=== PATIENT | female | born 1950 | race Caucasian/White ===

== ENCOUNTER 2017-08-14 04:05 | Emergency (ER) | payer SELFPAY ==
[2017-08-14] MEDS: IPRATROPIUM (NEB) 0.5 MG/2.5 ML AMP HHN (08:03)
[2017-08-14] MEDS: ALBUTEROL 0.083% (NEB) 2.5 MG/3 ML AMP HHN (08:04)
== END 2017-08-14 09:12 | disposition home or self-care (01) ==
LOC: FTE 04:05
DX: R05 Cough (principal); J45.909 Unspecified asthma, uncomplicated
CPT/HCPCS: 71045; 94664; 99284-25